=== PATIENT | female | born 1985 | race Two or more races ===

== ENCOUNTER 2022-06-26 19:57 | Emergency (ER) | payer BC ==
[~2022-06-26] VITALS: Ht 154.9 cm; Wt 54.4 kg
== END 2022-06-26 21:58 | disposition home or self-care (01) ==
LOC: ER 19:57
DX: T50.995A Adverse effect of other drugs, medicaments and biological substances, initial encounter (principal); Y92.9 Unspecified place or not applicable; Z88.8 Allergy status to other drugs, medicaments and biological substances